=== PATIENT | female | born 1975 | race Two or more races ===

== ENCOUNTER 2019-02-15 09:29 | Emergency (ER) | payer SELFPAY ==
[~2019-02-15] VITALS: Ht 165.1 cm; Wt 60.0 kg
[2019-02-15] MEDS ORDERED: FAMOTIDINE 20MG/2ML VIAL IV STA (09:53)
[2019-02-15] MEDS ORDERED: MORPHINE SULFATE 4 MG/ML CPJ (NOT FOR IM USE) IV STA (09:53)
[2019-02-15] MEDS ORDERED: ONDANSETRON HCL 4MG/2ML INJ IV STA (09:53)
[2019-02-15 10:18] LABS: BASOPHILS % 1.6 % (0.0-2.0); CHLORIDE 101 mEq/L (98-107); EOSINOPHILS % 1.2 % (0.0-5.0); HEMATOCRIT. 40.6 % (36.0-48.0); HEMOGLOBIN. 13.7 g/dL (12.0-16.0); LYMPHOCYTES % 15.4 % (20.0-50.0); MEAN CORPUSCULAR HEMOGLOBIN 33.1 pg (28.0-32.0); MEAN PLATELET VOLUME 9.4 fl (7.4-10.4); MONOCYTES % 4.9 % (2.0-8.0); NEUTROPHILS % 76.9 % (40.0-76.0); PLATELET 157 x1000/uL (130-400); RED BLOOD CELL COUNT 4.14 mill/uL (4.2-5.4); RED CELL DISTRIBUTION WIDTH 16.9 % (11.6-14.6)
[2019-02-15 10:20] LABS: INR 1.2; PROTHROMBIN TIME 12.5 sec (9.6-11.0)
[2019-02-15 10:22] LABS: ETHANOL BLOOD 31 mg/dL
[2019-02-15 10:24] LABS: HCG SCREEN NEGATIVE
[2019-02-15 10:58] LABS: CLARITY URINE CLOUDY (CLEAR); COLOR URINE DARK YELLOW (YELLOW); KETONES URINE TRACE (NEGATIVE); LEUKOCYTE ESTERASE URINE 2+ (NEGATIVE); NITRITE URINE POSITIVE (NEGATIVE); OCCULT BLOOD URINE TRACE (NEGATIVE); PROTEIN URINE 1+ (NEGATIVE); SPECIFIC GRAVITY URINE 1.028 (1.005-1.030)
[2019-02-15 11:59] LABS: *BENZODIAZEPINES SCREEN URINE NEGATIVE (NEGATIVE); *COCAINE SCREEN URINE NEGATIVE (NEGATIVE); CANNABINOID URINE SCREEN NEGATIVE (NEGATIVE); METHADONE URINE SCREEN NEGATIVE (NEGATIVE); PHENCYCLIDINE URINE SCREEN NEGATIVE (NEGATIVE)
[2019-02-15 12:09] LABS: *BARBITURATES SCREEN URINE NEGATIVE (NEGATIVE)
[2019-02-15] MEDS ORDERED: CEFTRIAXONE 1 G PREMIX 50 ML IV ONE (12:15)
[2019-02-15 12:24] LABS: *AMPHETAMINES SCREEN URINE PRESUMTIVE POSITIVE (NEGATIVE); OPIATES URINE SCREEN PRESUMTIVE POSITIVE (NEGATIVE)
[2019-02-15] MEDS ORDERED: ACETAMINOPHEN WITH CODEINE 300/30MG TABLET PO STA (18:37)
[2019-02-16 08:53] VITALS: BP 132/86
== END 2019-02-16 08:58 | disposition home or self-care (01) ==
LOC: ER 09:29
DX: R10.9 Unspecified abdominal pain (principal); R11.10 Vomiting, unspecified; F17.200 Nicotine dependence, unspecified, uncomplicated; K76.9 Liver disease, unspecified; Z59.0 Homelessness
CPT/HCPCS: 36415; 74176; 76705; 80053; 80305; 80320; 81003; 81025; 83690; 84703; 85025; 85610; 87086; 96365; 96375; 99284; J0696; J2270; J2405; J3490; G0480